=== PATIENT | female | born 1950 | race Caucasian/White ===

== ENCOUNTER 2024-01-12 08:03 | Emergency (ER) | payer MEDICARE, SELFPAY ==
[2024-01-12 08:04] VITALS: BP 138/80; PULSE 80; RESP 13; TEMP 36.9; O2SAT 95; BMI 25.8
[2024-01-12 08:10] VITALS: BP 167/96; PULSE 80; O2SAT 95
--- NOTE | 2024-01-12 08:25 | PC.NURSE ---
DR CHUNG AT BEDSIDE
--- NOTE | 2024-01-12 08:33 | XR_ITS ---
FINAL REPORT CLINICAL HISTORY: no known trauma, severe knee pain COMPARISON: None FINDINGS: LEFT FEMUR: Two views show no evidence of an acute, displaced fracture or dislocation of the visualized bony architecture. The joint spaces appear normal. IMPRESSION: Unremarkable exam. Reviewed, Interpreted and Dictated by Jayla Felipe MD Transcribed by Fauzia Doyle Authenticated and [facility]
--- NOTE | 2024-01-12 08:33 | XR_ITS ---
FINAL REPORT CLINICAL HISTORY: no known trauma, severe knee pain COMPARISON: None FINDINGS: LEFT TIBIA FIBULA: There is no acute fracture or dislocation. The joint spaces are intact. There is no soft tissue abnormality. IMPRESSION: No acute fracture Reviewed, Interpreted and Dictated by Jayla Felipe MD Transcribed by Fauzia Doyle Authenticated and [facility]
--- NOTE | 2024-01-12 08:33 | XR_ITS ---
FINAL REPORT CLINICAL HISTORY: no known trauma, severe knee pain COMPARISON: None FINDINGS: 3 images of the left knee were obtained. There is no evidence of fracture or dislocation. A moderate sized joint effusion is present. There is moderate degenerative change in the knee, most advanced in the patellofemoral joint. There is no soft tissue abnormality identified. IMPRESSION: Moderate degenerative change, particularly in the patellofemoral joint, with a moderate joint effusion. No acute bony abnormality identified. Reviewed, Interpreted and Dictated by Jayla Felipe MD Transcribed by Fauzia Doyle Authenticated and [facility]
--- NOTE | 2024-01-12 08:33 | XR_ITS ---
FINAL REPORT CLINICAL HISTORY: no known trauma, severe knee pain COMPARISON: None FINDINGS: LEFT HIP: Two views of the left hip demonstrate no acute fracture or dislocation. The joint spaces appear normal. The visualized bony structures are well aligned. No soft tissue abnormality is seen. IMPRESSION: No acute bony abnormality. Reviewed, Interpreted and Dictated by Jayla Felipe MD Transcribed by Fauzia Doyle Authenticated and [facility]
--- NOTE | 2024-01-12 08:35 | HMH.EDGENADL ---
Discharge Plan Disposition Patient Disposition: Home, Self-Care Condition: Good Prescriptions Prescriptions: New ketorolac 10 mg tablet 10 mg PO Q8H PRN (Reason: pain) Qty: 14 0RF Referrals Follow up/Referrals: Roshni Mandujano MD [Primary Care Provider] - See instructions Shamir Álvarez DO [Staff Physician] - See instructions Activity Restrictions/Add. Instructions Additional Instructions/Restrictions: You were evaluated in the emergency department today. Please coal picker your prescription at the pharmacy and take as needed for pain and inflammation. I recommend taking it scheduled [id number] for the first 48 hours to see if your symptoms improve. Please follow-up very closely with your primary care provider as well as with orthopedics. I have provided you with information for Dr. Álvarez should you wish to follow-up here. Ice the area for 15 minutes every few hours to help reduce swelling and inflammation, and keep your leg elevated. You may bear weight as tolerated. Please return to the emergency department right away for new or worsening symptoms, such as significant worsening in swelling and pain, significant worsening of redness and warmth, and/or fever. Clinical Impressions Clinical Impression: Acute pain of left knee, Effusion of left knee Instructions Patient Instructions: DI for Acute Pain -- Adult, DI for Knee Effusion Discharge ED Provider: Dalila Sutherland General Adult HPI General Chief complaint: PAIN Stated complaint: left knee pain Time Seen by Provider: 01/12/24 08:13 Mode of Arrival: Wheelchair Source of Information: Patient and Relative Limitations: No Limitations Description of Symptoms (Recalled from ER Triage Doc. by RN): pt presents to ED with c/o left knee pain. pt reports she went swimming on tuesday and felt some pain after, last night she began to have worsening pain. daughter reports redness and swelling. History of Present Illness HPI narrative: This patient is a 73-year-old female with a history of autoimmune hepatitis on immunosuppression and prior right knee replacement presenting to the emergency department for evaluation with concern for left knee pain. Patient reports that she has left knee arthritis and is anticipating future left knee replacement given chronic pain, and she did go swimming on Tuesday and felt some pain in her left knee after. This is not unusual for her. Last night, the pain became significantly worse. She has been up since 3:00 in the morning, crying and uncomfortable. Her daughter reported that she is having pain with bearing weight on the extremity and cried with any sort of movement. Her daughter also noted concerns that it was red and warm when compared to the other knee. Given this, she brought her in for evaluation. She states the pain is a little bit better at this time, but she still has significant pain with range of motion and is not putting weight on it. No history of gout or septic arthritis in the past. No recent wounds or infectious sources that she knows of. No other concerns noted at this time. Related Data Previous Rx's Medication Instructions Recorded ketorolac 10 mg tablet 10 mg PO Q8H PRN pain #14 tabs 01/12/24 Allergies Allergy/AdvReac Type Severity Reaction Status Date / Time No Known Allergies Allergy Verified 01/12/24 08:47 [facility] Disclaimer: The information contained in this section may have been updated after the patient was seen, as this information can be updated by other users. Social History Smoking Status: Never smoker alcohol intake: never current occupational status: retired Travel in the last 8 weeks: None ROS Obtained: Yes All systems reviewed & no additional complaints except as documented Physical Exam General General appearance: alert and in no apparent distress Head Head exam: atraumatic and normocephalic Eye Eye exam: Present normal appearance, PERRL and EOMI ENT ENT exam: Present normal exam, normal oropharynx, mucous membranes moist and normal external ear exam Neck Neck exam: Present normal inspection, full ROM and trachea midline; Absent tenderness Chest Chest inspection: Present normal inspection and symmetric chest wall rise; Absent tenderness Respiratory Respiratory exam: Present normal lung sounds bilaterally; Absent respiratory distress, wheezes, stridor or accessory muscle use Cardiovascular Cardiovascular exam: Present regular rate and normal rhythm Abdominal Exam Abdominal exam: Present soft; Absent distention, tenderness or guarding Extremities Exam Extremities exam: Present tenderness, normal capillary refill and joint swelling; Absent full ROM or edema Expanded Lower Extremity Exam Left: Hip/Pelvis exam: Present normal inspection Upper leg exam: Present normal inspection Knee exam: Present swelling (Joint effusion of the left knee), erythema (Very mild left knee erythema when compared to the right with mild warmth.) and effusion; Absent full ROM (Limited range of motion of the left knee secondary to pain, but patient does have some preserved active passive range of motion.), abrasion, laceration, ecchymosis or crepitus Lower leg exam: Present normal inspection Ankle exam: Present normal inspection Neurovascular/Tendon exam: Present normal capillary refill Back Exam Back exam: Present normal inspection and full ROM; Absent tenderness Neurological Exam Neurological exam: Present alert, oriented X3 and CN II-XII intact; Absent motor sensory deficit Psychiatric Psychiatric exam: Present normal affect and normal mood Skin Skin exam: Present warm and dry Medical Decision Making Medical Records Medical records reviewed: Yes I reviewed the patient's medical records. [place] Inquiry Pt receiving controlled substance: No Vital Signs: 01/12/24 08:04 01/12/24 08:10 01/12/24 09:00 Temperature 98.4 F Temperature Source Oral Pulse Rate 80 80 Pulse Rate [Left Radial] 80 Respiratory Rate 13 Blood Pressure 167/96 H Blood Pressure [Left Arm] 138/80 Blood Pressure Mean [Left Arm] 99 02 Sat by Pulse Oximetry 95 95 99 Oxygen Delivery Method Room Air Room Air 01/12/24 09:30 Temperature Temperature Source Pulse Rate 77 Pulse Rate [Left Radial] Respiratory Rate Blood Pressure Blood Pressure [Left Arm] Blood Pressure Mean [Left Arm] 02 Sat by Pulse Oximetry 97 Oxygen Delivery Method Lab Data Lab results reviewed: Yes I reviewed the patient's lab results. Lab Results 01/12/24 08:40: WBC 8.3, RBC 4.62, Hgb 14.1, Hct 42.8, MCV 92.8, MCH 30.5, MCHC 32.8, RDW 13.7, Plt Count 343, MPV 6.8 L, Neut % (Auto) 60.0, Lymph % (Auto) 30.5, Boundary % (Auto) 6.3, Eos % (Auto) 2.1, Baso % (Auto) 1.2, Neut # (Auto) 5.0, Lymph # (Auto) 2.5, Boundary # (Auto) 0.5, Eos # (Auto) 0.2, Baso # (Auto) 0.1, ESR 29, Sodium 139, Potassium 4.0, Chloride 103, Carbon Dioxide 27, Anion Gap 13.0, BUN 20 H, Creatinine 0.80, Estimated Creat Clear 56, Estimated GFR 70, Est GFR ( Amer) 85, Glucose 102 H, Calcium 9.7, Total Bilirubin 0.5, AST 42 H, ALT 44, Alkaline Phosphatase 141 H, C-Reactive Protein 13.2 H, Total Protein 8.9 H, Albumin 4.7, Globulin 4.2 H, Albumin/Globulin Ratio 1.1 01/12/24 08:40 01/12/24 08:40 Orders (Tests/Meds): ED MEDICATIONS Discontinued Medications Generic Name Dose Route Start Last Admin Trade Name Freq PRN Reason Stop Dose Admin Ketorolac Tromethamine 15 mg 01/12/24 08:33 01/12/24 08:50 Ketorolac 30mg/Ml Vial IV 01/12/24 08:34 15 mg ONCE ONE Administration ORDERS Category Date Time Status XR femur LT 2V Stat Exams 01/12/24 08:33 Taken XR hip LT 2-3V w/pelvis Stat Exams 01/12/24 08:33 Taken XR knee LT 3V Stat Exams 01/12/24 08:33 Taken XR tibia fibula LT 2V Stat Exams 01/12/24 08:33 Taken C-Reactive Protein Stat Lab 01/12/24 08:40 Results Complete Blood Count Auto Diff Stat Lab 01/12/24 08:40 Completed Comprehensive Metabolic Panel Stat Lab 01/12/24 08:40 Results Erythrocyte Sedimentation Rate Stat Lab 01/12/24 08:40 Completed Uric Acid Stat Lab 01/12/24 08:40 Results Medical Decision Narrative: In summary, this patient is a 73-year-old female presenting to the Emergency Department for evaluation of left knee pain with no known significant trauma. Differential diagnoses considered include but are not limited to gouty arthritis, septic arthritis, osteoarthritis, occult fracture, tendinitis, musculoskeletal strain/sprain. Ruling out the most morbid conditions drove assessment. It should be noted patient's history includes autoimmune hepatitis which may or may not be at goal therapy. This complicates all aspects of care by increasing patient's risk for morbidity. On exam, the patient is sitting upright in wheelchair in no acute distress. She does have mild left knee effusion with mild erythema and warmth when compared to the right. She does have some preserved active range of motion, though with significant pain. All compartments soft, neurovascularly intact distally. Workup included CBC, CMP, ESR, CRP, uric acid, and x-rays of the left hip/pelvis, left femur, left knee, and left tib-fib. She was given IV Toradol for symptomatic improvement of pain. I independently interpreted x-rays prior to the radiologist read and noted no acute fracture or bony destruction. Please see their read for final interpretation. Labs were obtained that demonstrated CRP that is at the upper limits of normal, but patient has no leukocytosis and ESR is negative.. On reassessment, patient had good improvement after administration of Toradol. She is now able to actively range her left knee. Passive range of motion is also intact. Given this, lower suspicion for septic arthritis at this time. Teresita criteria supports this, with no fever, leukocytosis, or elevated ESR. I had shared decision-making with the patient and family and advised that we cannot definitively exclude septic arthritis without joint aspiration, which would also be the diagnostic test for gouty arthritis. Her daughter is also a physician and is very knowledgeable. She advised that since her inflammatory markers are reassuring and she is overall low risk based on Teresita criteria, they feel they would prefer discharge home with close follow-up outpatient with primary care/orthopedics. They would bring her back if any symptoms worsen or should she develop any fevers or infectious symptoms. I do feel this is reasonable. At this time, patient was deemed to be appropriate for discharge. She was given prescription for Toradol, instructions for supportive management as an outpatient, and very strict return precautions. Advised that she follow-up closely with orthopedics. Considered assistive devices, patient states that she will be able to get around with her cane. Patient was discharged after all questions were answered. Critical Care Critical Care Time Critical Care Time: No
[2024-01-12] MEDS: KETOROLAC 30MG/ML VIAL 15 MG IV (08:50)
[2024-01-12 09:00] VITALS: PULSE 80; O2SAT 99
--- NOTE | 2024-01-12 09:00 | PC.NURSE ---
PT TRANSPORTED TO RADIOLOGY VIA WHEELCHAIR
[2024-01-12 09:20] LABS: Basophils # 0.1 K/mm3 (0-0.2); Basophils % 1.2 % (0.1-2.0); Eosinophils # 0.2 K/mm3 (0.0-0.4); Eosinophils % 2.1 % (0.1-12.0); Hematocrit 42.8 % (37.0-47.0); Hemoglobin 14.1 g/dL (12.2-16.2); Lymphocytes # 2.5 K/mm3 (0.7-4.5); Lymphocytes % 30.5 % (10-50); Mean Corpuscular HGB Conc 32.8 g/dL (31.8-35.4); Mean Corpuscular Hemoglobin 30.5 pg (27.0-31.2); Mean Corpuscular Volume 92.8 fl (81-99); Mean Platelet Volume 6.8 fl (7.4-10.4); Monocytes # 0.5 K/mm3 (0.1-1.0); Monocytes % 6.3 % (1.7-9.3); Platelet Count 343 K/mm3 (142-424); Red Blood Count 4.62 M/mm3 (4.20-5.40); Red Cell Distribution Width 13.7 % (11.5-17.5); White Blood Count 8.3 K/mm3 (4.8-10.8)
[2024-01-12 09:27] LABS: Chloride 103 mmol/L (98-107); Sodium 139 mmol/L (136-145)
[2024-01-12 09:29] LABS: Alanine Aminotransferase 44 U/L (12-78); Aspartate Amino Transferase 42 U/L (14-36); Bilirubin,Total 0.5 mg/dl (0.2-1.3); Blood Urea Nitrogen 20 mg/dl (7-17); Creatinine Clearance Estimated 56 mL/min (50-200); Estimated Glomerular Filt Rate 70 ml/min (>60); GFR (African American) 85 ML/MIN (>60)
[2024-01-12 09:30] VITALS: PULSE 77; O2SAT 97
[2024-01-12 09:30] LABS: Albumin Level 4.7 g/dl (3.5-5.0); Albumin/Globulin Ratio 1.1 (1.1-1.8); Alkaline Phosphatase 141 U/L (38-126); Calcium 9.7 mg/dl (8.4-10.2); Carbon Dioxide 27 mmol/L (22.0-30.0); Globulin 4.2 g/dL (1.3-3.2); Glucose 102 mg/dl (74-100); Total Protein,Serum 8.9 g/dl (6.3-8.2)
[2024-01-12 09:35] LABS: C-Reactive Protein 13.2 mg/L (0-4)
[2024-01-12 09:44] LABS: Erythrocyte Sedimentation Rate 29 mm/hr (0-30)
--- NOTE | 2024-01-12 10:08 | PC.NURSE ---
DR CHUNG AT BEDSIDE TO UPDATE PT AND FAMILY
[2024-01-12 10:23] VITALS: BP 125/85; PULSE 70; RESP 13; TEMP 36.7
== END 2024-01-12 10:23 | disposition home or self-care (01) ==
PROVIDERS: Emergency Provider Emergency Medicine; PCP Internal Medicine
DX: M25.562 Pain in left knee (principal); M25.462 Effusion, left knee
CPT/HCPCS: 73502; 73552; 73562; 73590; 80053; 84550; 85025; 85651; 86140; 96374; 99284; J1885